=== PATIENT | female | born 1935 | race Caucasian/White ===

== ENCOUNTER 2017-05-05 21:14 | Inpatient (IN) | payer MEDICARE, BC ==
[~2017-05-05] VITALS: Ht 170.2 cm; Wt 86.6 kg
--- NOTE | ~2017-05-05 | H ---
[address] [address] HISTORY AND PHYSICAL Name: JEREMIAH CERDA Room: [address] IN .R.#: [id number] Admission: 05/05/17 Attend Phys: Chaparro Kang MD Discharge: 05/09/17 Date of : 33 Report #: [id number] THIS REPORT FOR: //name// For History and Physical please refer to the consultation note in the patient's medical record. By: [facility]4Medical Records Staff SOWMYA /MEDINA
[~2017-05-05 21:14] MED LIST: ACETAMINOPHEN-1 EAC1 PO; ACIPHEX 20 MG T20 MG PO; ADULT LOW DOSE81 MG PO; AMLODIPINE BESYL5 M1 PO; AMOXICILLIN 50500 MG PO; ANTIVERT12.5 MG PO; ANTIVERT25 MG PO; ASPIR 8181 MG PO; ASPIRIN EC325 MG PO; ATIVAN0.5 MG PO; BETAPACE80 MG PO; BUSPIRONE HCL10 MG PO; BYSTOLIC 5 MG5 M1 PO; BYSTOLIC10 MG PO; COD LIVER OIL1 EACH PO; COZAAR 25 MG TA25 MG PO; COZAAR 50 MG TA50 M1 PO; COZAAR 50 MG TA50 M2 PO; FLONASE 0.05%50 MCG NS; FLOVENT DISKUS50 MCG IH; FLOVENT HFA 4444 MCG; HYDRALAZINE 2525 M1 PO; HYDRALAZINE 2525 MG PO; ISOSORBIDE DINI30 MG; LANTUS SUBQ; LEVOTHROID75 MCG PO; LEVOTHYROXIN0.075 MG PO; LEVOXYL88 MCG PO; LIPITOR 10 MG10 M1 PO; LIPITOR10 MG PO; LOPRESSOR25 PO; MECLIZINE 25 MG25 M1 PO; MECLIZINE HCL25 M1 PO; METFORMIN HCL500 MG PO; NASAL SPRAY30 ML NS; NIACIN400 MG PO; NITROGLYCERIN0.4 MG SUBLING; NITROSTAT0.4 M1 SUBLING; NITROSTAT0.4 MG SL; NORVASC5 MG PO; PLAVIX 75 MG TA75 M1 PO; PLAVIX 75 MG TA75 MG PO; PRAVACHOL40 MG PO; PREDNISONE 20 M20 M1 PO; SORINE 80 MG TA80 M1; SORINE 80 MG TA80 M1 PO; SOTALOL160 MG PO; SOTALOL80 MG PO; TOPROL XL25 MG PO; TYLENOL325 MG PO; VALIUM2 MG PO; XARELTO10 MG PO; XARELTO15 MG PO; ZOCOR 10 MG TAB10 MG PO; ZOCOR5 MG PO; ZOLOFT50 MG PO
[2017-05-05 21:24] VITALS: BP 125/69
[2017-05-05 21:43] LABS: ABSOLUTE EOSINOPHILS 0.1 thou/uL (0.0-0.7); ABSOLUTE LYMPHOCYTES 1.9 thou/uL (0.8-5.3); ABSOLUTE MONOCYTES 0.5 thou/uL (0.0-1.2); ABSOLUTE NEUTROPHILS 4.7 thou/uL (1.6-8.1); BASOPHILS 0.6 %; EOSINOPHILS 1.4 %; HEMATOCRIT 41.8 % (37.0-47.0); HEMOGLOBIN 14.1 gm/dL (12.0-15.0); LYMPHOCYTES 25.9 %; MCH 30.3 pg (26.0-34.0); MCHC 33.8 g/dL (28.0-37.0); MCV 89.6 fL (80.0-100.0); MPV 7.7 fl. (7.2-11.1); NUCLEATED RBCS 0 /100WBC; PLATELET COUNT* 237 thou/uL (150-400); POLYS 65.1 %; RBC 4.67 mil/uL (4.20-5.00); RDW-CV 13.6 % (10.5-14.5); WBC 7.2 thou/uL (4.0-11.0)
[2017-05-05 22:00] LABS: CALCIUM 8.5 mg/dL (8.5-10.1); CREATININE 1.2 mg/dL (0.6-1.3)
[2017-05-05 22:05] LABS: ALBUMIN 3.3 g/dL (3.4-5.0); TOTAL BILIRUBIN 0.3 mg/dL (<0.1-1.0); TOTAL PROTEIN 7.1 g/dL (6.4-8.2)
[2017-05-05 22:08] LABS: TROPONIN-I LEVEL 0.9 ng/mL (<0.06)
[2017-05-05 22:25] LABS: URINE BILIRUBIN NEGATIVE (Negative); URINE BLOOD NEGATIVE (Negative); URINE CLARITY CLEAR; URINE COLOR YELLOW; URINE GLUCOSE-RANDOM 2+ (Negative); URINE KETONES NEGATIVE (Negative); URINE LEUKOCYTES-REFLEX NEGATIVE (Negative); URINE NITRITE-REFLEX NEGATIVE (Negative); URINE PROTEIN NEGATIVE (Negative); URINE SPECIFIC GRAVITY 1.025 (1.005-1.030); URINE UROBILINOGEN 0.2 E.U./dl (0.2-1.0)
[2017-05-05 22:40] LABS: INFLUENZA A ANTIGEN None Detected (None Detect); INFLUENZA B ANTIGEN None Detected (None Detect)
[2017-05-06] VITALS (8 sets, daily range): BP systolic 112–148; BP diastolic 46–79
--- NOTE | 2017-05-06 01:00 | NUR ---
PT BROUGHT TO ICU BED 1 FROM THE ED FOR TACHYCARDIA, ELEVATED TROP, AMS, IDDM UNCONTROLLED. ASSESSMENT AND VS OBTAINED, SEE CHARTING. PT WAS GIVEN ADENOSINE BEFORE PT CAME TO THE ED. CARDIZEM OFF AND PT IS IN SR 60-70. PT ON RA WITH SATS 95-100. PT IS AXOX4 AND STATES THAT SHE FEELS MUCH BETTER. WILL CON'T TO MONITOR.
--- NOTE | 2017-05-06 05:37 | NUR ---
NO CHANGE IN PT'S CONDITION SINCE ADMISSION. TROP WAS 1.34 ASKED THE PT IF SHE WAS HAVING ANY CHEST, JAW, ARM PAIN AND SHE STATED NO.
[2017-05-06 08:06] LABS: CHOLESTEROL 309 mg/dL (<200); HDL CHOLESTEROL 65 mg/dL (>40); LDL CHOLESTEROL 223 mg/dL (<100); SERUM ASSESSMENT Slight Lipemia; TC:HDL 4.8 Ratio (Not establshd); TRIGLYCERIDE 106 mg/dL (<150); VLDL 21 mg/dL (<40)
--- NOTE | 2017-05-06 13:55 | NUR ---
PATIENT IN STRESS TEST. UP IN ROOM PRIOR WITHOUT COMLAINT.
--- NOTE | 2017-05-06 14:44 | EKG ---
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 : 1935 Requested By: Anand Webber Order Number: [id number] MD: Chaparro Kang Measurements Intervals [place] Rate: 139 P: 179 MA: 133 QRS: 42 QRSD: 119 T: 7 QT: 328 QTc: 499 Interpretive Statements Supraventricular tachycardia Right bundle branch block Compared to ECG 01/28/2016 08:04:09 Right bundle-branch block now present Sinus rhythm no longer present T-wave abnormality no longer present Possible ischemia no longer present Electronically Signed On 05-06-2017 14:44:32 CDT by Chaparro Kang [email or web address] <ELECTRONICALLY SIGNED> By: Chaparro Kang MD, FACC 05/06/17 1444 2134 2134 Chaparro Kang MD, FAC /EPI
--- NOTE | 2017-05-06 14:45 | EKG ---
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 : 1935 Requested By: Anand Webber Order Number: [id number] Reading MD: Chaparro Kang Measurements Intervals [place] Rate: 123 P: [place]: QRS: 183 QRSD: 134 T: 1 QT: 359 QTc: 514 Interpretive Statements Supraventricular tachycardia Right bundle-branch block Borderline repol abnrm, inferolateral leads ST depression V1-V3, suggest recording posterior leads Baseline wander in lead(s) V1 Compared to ECG 01/28/2016 08:04:09 ST (T wave) deviation now present Sinus rhythm no longer present T-wave abnormality no longer present Possible ischemia no longer present Electronically Signed On 05-06-2017 14:45:00 CDT by Chaparro Kang [email or web address] <ELECTRONICALLY SIGNED> By: Chaparro Kang MD, [facility] 05/06/17 1445 000 0006 Chaparro Kang MD, [facility] /EPI
--- NOTE | 2017-05-06 14:45 | EKG ---
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 Rep: KIMBERLY : 1935 Requested By: Anand Webber Order Number: [id number] Natali MD: Chaparro Kang Measurements Intervals [place] Rate: 120 P: 179 [place]: 199 QRS: 1 QRSD: 126 T: 18 QT: 367 QTc: 519 Interpretive Statements Ventricular tachycardia Consider left atrial enlargement Right bundle branch block Consider left ventricular hypertrophy ST depr, consider ischemia, anterolateral lds Prolonged QT interval Baseline wander in lead(s) I,aVR,V1 Compared to ECG 01/28/2016 08:04:09 Right bundle-branch block now present Prolonged QT interval now present Sinus rhythm no longer present T-wave abnormality no longer present Possible ischemia still present Electronically Signed On 05-06-2017 14:45:21 CDT by Chaparro Kang [email or web address] <ELECTRONICALLY SIGNED> By: Chaparro Kang MD, [facility] 05/06/17 1445 0044 0044 Chaparro Kang MD, [facility] /EPI
--- NOTE | 2017-05-06 14:45 | EKG ---
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 : 1935 Requested By: Anand Webber Order Number: [id number] MD: Chaparro Kang Measurements Intervals [place] Rate: 64 P: 58 [place]: 191 QRS: -19 QRSD: 131 T: 87 QT: 442 QTc: 456 Interpretive Statements Sinus rhythm Right bundle branch block Repol abnrm suggests ischemia, diffuse leads Compared to ECG 01/28/2016 08:04:09 Right bundle-branch block now present Early repolarization now present T-wave abnormality no longer present Possible ischemia still present Electronically Signed On 05-06-2017 14:45:28 CDT by Chaparro Kang [email or web address] <ELECTRONICALLY SIGNED> By: Chaparro Kang MD, FACC 05/06/17 1445 0047 0047 Chaparro Kang MD, FACC /EPI
--- NOTE | 2017-05-06 17:53 | NUR ---
REPORT CALLED TO SAM RUIZ. PT TO TRANSFERED TO 201
[2017-05-06 18:07] LABS: GLYCOHEMOGLOBIN (HGB A1C) 9.5 % (4.8-5.6)
--- NOTE | 2017-05-06 18:31 | NUR ---
PATIENT RESTING IN CHAIR IN ROOM. UP AD JONO ON UNIT. 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 VITAL SIGNS STABLE. HOURLY ROUNDING COMPLETED FOR PATIENT SAFETY.
[2017-05-07] VITALS: BP 115/43
--- NOTE | 2017-05-07 02:17 | NUR ---
RESTING IN BED MOST OF NIGHT. DENIES COMPLAINTS OF PAIN OR DISCOMFORT. UP AD JONO WITH SLOW STEADY GAIT. NO SIGN OF DISTRESS. CONT. TO MONITOR. CONT. WITH CURRENT PLAN OF CARE AT THIS TIME.
[2017-05-07 04:00] VITALS: BP 138/44
[2017-05-07 08:00] VITALS: BP 143/58
--- NOTE | 2017-05-07 08:00 | NUR ---
ASSUMED CARE OF PT ASSESSED AND DOCUMENTED. PT ON CARDIAC MONITER TRACING SB HR 52. PT IS A&O WITH NO C/O PAIN. PT IS ON ROOM AIR WITH CLEAR LUNGS. VSS WNL. PT IS AFEBRILE. BED IS IN LOW POSITION CALL LIGHT IS IN REACH. WM.
[2017-05-07 11:49] VITALS: BP 154/64
--- NOTE | 2017-05-07 15:11 | NUR ---
SPOKE WITH PT.WHO WAS ALERT AND ORIENTED. SHE SAID SHE LIVES ALONE. SHE SAID SHE IS VERY INDEPENDENT. HER DAUGHTER, SHRADDHA AND HER GRANDKIDS CHECK ON HER OR CALL HER DAILY. SHE DOES NOT USE ANY DME. SHE STILL DRIVES,SHOPS,COOKS-LIKES TO EAT OUT. SHE SHOULD NOT HAVE ANY DISCHARGE NEEDS.
[2017-05-07 15:55] VITALS: BP 127/48
--- NOTE | 2017-05-07 16:35 | CARDNUC ---
[place] [address] CARDIAC NUCLEAR IMAGING REPORT Name: JEREMIAH CERDA Room: [address] IN [facility]#: [id number] Admission: 05/05/17 Attend Phys: Chaparro Kang, Discharge: Date of : 34 Date of Service: 05/07/17 1635 Report #: [id number] THIS REPORT FOR: //name// APPROVED REPORT Study performed: 05/06/2017 10:12:00 Exam: Nuclear Stress Test Indication: Dyspnea Patient Location: Out-Patient Stress Tech: Lula Rodas Stress Nurse: Rhoda Melendez RN NM Tech:RAE Darby Ht: 5 ft 7 in Wt: 253 lbs BSA: 2.24 m2 BMI: 39.62 Medical History Medical History: CAD s/p DE, CAD s/p stent, HTN, Hyperlipidemia, Diabetes, Atrial Fibrillation Medications: adenosine, atorvastatin, diltiazem, hydralazine, losartan, sotalol, asa Allergies: menthol, sulfa, triplelennamine, clemastine, diphenhydramine, phynelpropanolemine, pseudoephedrin, triproledine Cardiac Risk Factors: Age, DM, HTN, Hyperlipidemia Previous Cardiac Procedures: Myocardial infarction, PCI Exercise History: Sedentary Stress Test Details Stress Test: Pharmacologic stress testing performed using 0.4 mg of regadenoson per 5 mL given IV over 10 seconds. Reason for pharmacologic stress test: physical limitation. HR Resting HR: 77 bpm Max Heart Rate (APMHR): 137 bpm Max HR Achieved: 90 bpm Target HR (85% APMHR): 116 bpm % of APMHR: 65 Recovery HR: 82 bpm BP Resting BP: 145/91 mmHg Max BP: 148/68 [place] [address] CARDIAC NUCLEAR IMAGING REPORT Name: JEREMIAH CERDA Room: [address]#: [id number] Admission: 05/05/17 Attend Phys: Chaparro Kang, Discharge: Date of : 34 Date of Service: 05/07/17 1635 Report #: [id number] Resting ECG: Sinus Rhythm, RBBB Stress ECG: Sinus Rhythm, RBBB ST Change: None Arrhythmia: None Recovery ECG: Sinus Rhythm, RBBB Recovery ST Change: None Recovery Arrhythmia: None Clinical Reason for Termination: Completed protocol Stress Symptoms: SOB, SHAFFER post recovery Exercise duration: 0 min sec Exercise capacity: 1.0 METs The patient had headache and shortness of breath without chest pain with Lexiscan infusion. Nurse Comments Patient complained of SOB and SHAFFER post recovery in the nuclear med area, O2 placed on at 2L/NC, breath sounds clear to ascultation-bases clear, 50mg aminophylline IV slowly for c/o SHAFFER and SOB at 1410. Patient states feels much better now and is singing while getting nuclear imaging done at 1417. ICU nurse Josh WINKLER notified of SOB and SHAFFER and of aminophylline administration. Stress ECG Conclusion The baseline 12-lead elect cardiogram showed sinus rhythm with right bundle-branch block and nonspecific T-wave inversion and ST segment depression. EKGs obtained during and post Lexiscan infusion showed sinus rhythm with no significant ST or T wave changes when compared to baseline. There were no significant stress-induced arrhythmias. NM EXAM: Myocardial Perfusion STRESS/REST Imaging Protocol: Stress Tc-99m/Rest Tc-99m 2 days Resting Data Rest SPECT myocardial perfusion imaging was performed in supine position 30 minutes following the intravenous injection of 42.0 mCi of Tc-99m Sestamibi. Time of rest injection: 819 Date: 05/07/2017 Time of rest imagin The images were gated to evaluate regional wall motion and calculate left ventricular ejection fraction. Administration Route: IV [place] [address] CARDIAC NUCLEAR IMAGING REPORT Name: JEREMIAH CERDA Room: [address] IN ..#: [id number] Admission: 05/05/17 Attend Phys: Chaparro Kang, Discharge: Date of : 34 Date of Service: 05/07/17 1635 Report #: [id number] Pharmacologic stress test was performed by injecting Regadenoson 0.4 mg IV push followed by the intravenous injection of 40.3 mCi of Tc-99m Sestamibi. Time of stress injection: 1325 Date: 05/06/2017 Time of stress imagin Administration Route: IV Gated Stress SPECT was performed 40 minutes after stress injection. The images were gated to evaluate regional wall motion and calculate left ventricular ejection fraction. Stress only was performed in the Supine position. Study Quality Study: Good Artifact: No artifact Study Data At rest, the left ventricular ejection fraction was 53%.. Post stress, the left ventricular ejection was 46%.. TID = 1.02. Perfusion Resting images show uniform uptake of the radioisotope throughout the myocardium. Post Lexiscan stress there is a moderate size mild/moderate intensity defect involving the inferior wall. No other significant defects were identified. Wall Motion Gated images show hypokinesis involving the septum and inferior wall. Left ventricular systolic function appears to be at the lower limits of normal. Nuclear Conclusion ECG Findings: non-diagnostic Clinical Findings: non-diagnostic Nuclear Findings: positive for ischemia Exercise Capacity: not assessed Left Ventricular Function: abnormal Risk Study: high Myocardial perfusion images suggest inferior wall ischemia. Ventricular systolic function appears mildly decreased with associated wall motion abnormalities. This is a high risk study for underlying atherosclerotic coronary artery disease in the right coronary artery distribution. <Conclusion> [place] [address] CARDIAC NUCLEAR IMAGING REPORT Name: JEREMIAH CERDA Room: [address]#: [id number] Admission: 05/05/17 Attend Phys: Chaparro Kang, Discharge: Date of : 34 Date of Service: 05/07/17 1635 Report #: [id number] The baseline 12-lead elect cardiogram showed sinus rhythm with right bundle-branch block and nonspecific T-wave inversion and ST segment depression. EKGs obtained during and post Lexiscan infusion showed sinus rhythm with no significant ST or T wave changes when compared to baseline. There were no significant stress-induced arrhythmias. <ELECTRONICALLY SIGNED> By: Chaparro Kang MD, FACC 05/07/17 1635 34 34 Chaparro Kang MD, FACC /INF
[2017-05-07 17:04] LABS: APTT 23.3 Seconds (25.0-31.3); PROTIME 9.9 Seconds (9.20-11.50)
[2017-05-07 17:05] LABS: CALCIUM 8.5 mg/dL (8.5-10.1); CREATININE 1.2 mg/dL (0.6-1.3); POTASSIUM 4.7 mmol/L (3.5-5.1)
--- NOTE | 2017-05-07 17:07 | NUR ---
PT HAS RESTED IN HER ROOM THIS SHIFT. SHE AMBULATES WELL AND IS STEADY ON HER FEET. 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 PT REC 4U OF INSULIN WITH LUNCH ANG 6U WITH HER DINNER. EDUCATION GIVEN ON DEMAND. HOURLY ROUNDING COMPLETE.
--- NOTE | 2017-05-07 17:59 | EKG ---
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: : 1935 Requested By: Chaparro Kang Order Number: [id number] Reading MD: Desean Hinojosa Measurements Intervals [place] Rate: 60 P: 48 [place]: 194 QRS: -26 QRSD: 132 T: 177 QT: 451 QTc: 451 Interpretive Statements Sinus rhythm Right bundle branch block Repol abnrm suggests ischemia, anterolateral Compared to ECG 05/06/2017 00:47:52 No significant changes Electronically Signed On 05-07-2017 17:59:15 CDT by Desean Hinojosa [email or web address] <ELECTRONICALLY SIGNED> By: Desean Hinojosa MD, [facility] 05/07/17 1759 0950 0950 Desean Hinojosa MD, FACC /EPI
[2017-05-07 20:00] VITALS: BP 145/64
[2017-05-08] VITALS: BP 120/50
--- NOTE | 2017-05-08 02:49 | NUR ---
UP IN HALLWAY EARLIER. AMBULATIONS WITH STEADY GAIT. NPO AFTER [place] FOR CARDIAC CATH IN AM. DENIES COMPLAINTS OF PAIN OR DISCOMFORT. BED IN LOW POSITION, CALL LIGHT IN REACH. CONT. WITH CURRENT PLAN OF CARE AT THIS TIME.
[2017-05-08 04:00] VITALS: BP 135/51
[2017-05-08 08:00] VITALS: BP 162/61
--- NOTE | 2017-05-08 08:31 | NUR ---
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
[2017-05-08 11:40] VITALS: BP 141/52
--- NOTE | 2017-05-08 12:47 | CON ---
[address] [address] CONSULTATION Name: JEREMIAH CERDAOGENE Room: [address] IN M.R.#: [id number] Admission: 05/05/17 Attend Phys: Chaparro Kang MD Discharge: Date of : 34 Report #: [id number] THIS REPORT FOR: //name// CC: Armond Jeong MD [facility] Dr. Dominga MCGINNIS physician/PCP Chaparro Kang INDICATION: Recurrent supraventricular tachycardia. HISTORY OF PRESENT ILLNESS: The patient is a very pleasant 82-year-old white female who last night when going to bed developed recurrence of her supraventricular tachycardia. She had been on sotalol for this. She has not had an episode for probably 2 years. She presented to the emergency room where she was given diltiazem and ultimately adenosine and converted to sinus rhythm. In this setting, she has had a bump in her troponin to approximately 1.9. Review of the records show she has a chronically elevated troponin. She is not complaining of any chest pain or shortness of breath. EKG shows supraventricular tachycardia and then after conversion, sinus rhythm without ST elevation. At the time of my interview, she is comfortable and without complaint. A stress test has been ordered and is senior living completed at this time. She has no complaints at this time. PAST MEDICAL HISTORY: 1. Coronary artery disease with previous percutaneous coronary intervention to the left anterior descending coronary artery and first diagonal branch in December 2011. She had had a previous stent to the right coronary artery at that time that was patent. She has otherwise nonocclusive coronary artery disease. She is not having angina. 2. Hypertension. 3. Hyperlipidemia. 4. Hypothyroidism. 5. Type 2 diabetes mellitus. 6. Remote history of pulmonary embolus. PAST SURGICAL HISTORY: 1. Percutaneous coronary intervention in 2009 to the right coronary artery. 2. Percutaneous coronary intervention to the LAD and diagonal in 2011. ALLERGIES: MENTHOL, PHENYLPROPANOLAMINE, PSEUDOEPHEDRINE, TRIPROLIDINE, SULFA, and ANTIHISTAMINE. HOME MEDICATIONS: Aspirin 81 mg daily, atorvastatin 10 mg daily, hydralazine 25 mg b.i.d., Lantus 50 units at bedtime, Synthroid 0.075 mg daily, Cozaar 100 mg daily, meclizine 12.5 mg daily as needed, Nitrostat p.r.n., and sotalol 120 mg at bedtime, . [place] [address] CONSULTATION Name: JEREMIAH CERDA CRISS Room: [address]#: [id number] Admission: 05/05/17 Attend Phys: Chaparro Kang MD Discharge: Date of : 34 Report #: [id number] FAMILY HISTORY: Noncontributory. SOCIAL HISTORY: The patient is retired. She does not smoke. She does not drink alcohol. REVIEW OF SYSTEMS: On 14-point review of systems, she reports palpitations, dyspnea on exertion, mild peripheral edema, type 2 diabetes mellitus, hypothyroidism, history of pulmonary embolus in 2015, seasonal and medical allergies, she has arthritis without connective tissue diseases and wears reading glasses, otherwise 14-point review of systems was unremarkable. PHYSICAL EXAMINATION: VITAL SIGNS: Presently stable. Blood pressure is 128/64, pulse is 68 and regular. GENERAL: This is a pleasant lady, in no distress. Mood and affect appropriate. HEENT: Extraocular muscles intact. Mucous membranes are moist. NECK: Shows no jugular venous distention. There are no carotid bruits. CHEST: Reveals clear lung weathers without wheezes, rales, or rhonchi. CARDIAC: Reveals a regular rhythm with normal S1 and S2. I do not appreciate gallop or murmur. ABDOMEN: Reveals normal bowel sounds. The abdomen is soft and nontender. EXTREMITIES: Shows no significant edema. Peripheral pulses 2+ and palpable. SKIN: Warm and dry. A 12-lead EKG on arrival showed a slow atrial tachycardia. EKG presently sinus rhythm without acute ST or T-wave abnormality. Review of labs was fairly unremarkable with the exception of troponin of 1.9. Chest x-ray was without acute cardiopulmonary abnormality. IMPRESSION AND RECOMMENDATIONS: 1. Coronary artery disease, presently stable. She is not having any symptoms to suggest angina. 2. Non-ST elevation myocardial infarction as evidenced by elevated troponin, likely exacerbated by tachyarrhythmias. I do not believe she has had an acute coronary syndrome. We will follow clinically. No need for catheterization at this time. Stress test has been ordered and is senior living completed. 3. Recurrent supraventricular tachycardia, now in sinus rhythm. Increasing sotalol to 180 mg twice daily. We will repeat EKG in a.m. 4. Hypertension. Blood pressure adequately controlled on current regimen. [address] [place] [address] CONSULTATION Name: JEREMIAH CERDA Room: M.201-P ADM IN M.R.#: [id number] Admission: 05/05/17 Attend Phys: Chaparro Kang MD Discharge: Date of : 34 Report #: [id number] 5. Hyperlipidemia. Continue current statin agent. 6. Type 2 diabetes mellitus per primary physician. <ELECTRONICALLY SIGNED> By: Chaparro Kang MD, FACC 05/08/17 1247 1529 1755Micsherif Kang MD, FACC /nt
[2017-05-08 16:06] VITALS: BP 162/51
[2017-05-08 17:02] LABS: URINE BILIRUBIN NEGATIVE (Negative); URINE BLOOD NEGATIVE (Negative); URINE CLARITY CLEAR; URINE COLOR YELLOW; URINE GLUCOSE-RANDOM 3+ (Negative); URINE KETONES NEGATIVE (Negative); URINE LEUKOCYTES-REFLEX NEGATIVE (Negative); URINE NITRITE-REFLEX NEGATIVE (Negative); URINE PROTEIN NEGATIVE (Negative); URINE SPECIFIC GRAVITY 1.025 (1.005-1.030); URINE UROBILINOGEN 0.2 E.U./dl (0.2-1.0)
--- NOTE | 2017-05-08 18:49 | NUR ---
GOT UA AND PT TO GET MRI IN THE AM OF HEAD PT STILL CONFUSED BUT PLEASANT UP AD JONO WALKING THE HALLS BS STILL IN 200S T/O DAY DPOA NOTIFIED OF ALL CHANGES
[2017-05-08 20:00] VITALS: BP 179/57
--- NOTE | 2017-05-08 20:00 | NUR ---
RECEIVED REPORT AND ASSUMED CARE OF PT, ASSESSMENT COMPLETED. WHEN ASKING PT ORIENTATION QUESTIONS SHE LAUGHS IT OFF WHEN NOT KNOWING ANSWERS, SUCH ASKING WHERE SHE WAS STATED "YOU KNOW I'M OLD AND JUST WOKE UP SO CAN'T GIVE YOU THE RIGHT ANSWER". PLEASANT AND COOPERATIVE. TELEMETRY ON SHOWING SR. WILL CONT TO MONITOR AND ASSIST NEEDED.
[2017-05-09] VITALS: BP 130/52
[2017-05-09 04:24] VITALS: BP 158/53
--- NOTE | 2017-05-09 05:21 | NUR ---
AWAKE PART OF NIGHT AMBULATING AROUND ROOM. DENIES DISCOMFORT, JUST NOT ABLE TO SLEEP. TELEMETRY SHOWING SR WHILE AWAKE AND AT REST SB WITH 1ST AVB. ASSESSMENT UNCHANGED. HS GOALS PARTICALLY OBTAINED FOR REST AND SAFETY. HOURLY ROUNDING OBSERVED.
[2017-05-09 05:37] LABS: ABSOLUTE EOSINOPHILS 0.2 thou/uL (0.0-0.7); ABSOLUTE LYMPHOCYTES 1.4 thou/uL (0.8-5.3); ABSOLUTE MONOCYTES 0.5 thou/uL (0.0-1.2); ABSOLUTE NEUTROPHILS 3.5 thou/uL (1.6-8.1); BASOPHILS 0.6 %; EOSINOPHILS 3.6 %; HEMATOCRIT 37.5 % (37.0-47.0); HEMOGLOBIN 12.7 gm/dL (12.0-15.0); LYMPHOCYTES 25.8 %; MCH 30.4 pg (26.0-34.0); MCHC 33.7 g/dL (28.0-37.0); MONOCYTES 8.2 %; MPV 7.9 fl. (7.2-11.1); NUCLEATED RBCS 0 /100WBC; PLATELET COUNT* 221 thou/uL (150-400); POLYS 61.8 %; RBC 4.17 mil/uL (4.20-5.00); RDW-CV 13.6 % (10.5-14.5); WBC 5.6 thou/uL (4.0-11.0)
[2017-05-09 06:16] LABS: ALBUMIN 3.2 g/dL (3.4-5.0); CALCIUM 8.7 mg/dL (8.5-10.1); CREATININE 0.9 mg/dL (0.6-1.3); POTASSIUM 3.7 mmol/L (3.5-5.1); TOTAL BILIRUBIN 0.3 mg/dL (<0.1-1.0); TOTAL PROTEIN 6.2 g/dL (6.4-8.2)
[2017-05-09 08:02] VITALS: BP 158/57
--- NOTE | 2017-05-09 10:18 | NUR ---
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
[2017-05-09] MEDS ORDERED: SOTALOL160 MG PO (10:42)
[2017-05-09 10:48] VITALS: BP 158/57
[2017-05-09 11:24] VITALS: BP 123/48
--- NOTE | 2017-05-09 14:14 | NUR ---
PT LEFT WITH SON-IN-LAW VIA POV NO CONCERNS AT THIS TIME PT STILL VERY FORGETFUL CALLED ELIZABETH LLANES AND SHE'S AWARE OF DISCHARGE AND CHANGED
[2017-05-10] MEDS ORDERED: XANAX 0.25 MG0.25 MG PO (14:19)
[2017-05-12] MEDS ORDERED: DELSYM30 MG/5 M1 PO (18:56)
[2017-05-12] MEDS ORDERED: AMOXICILLIN 50500 MG PO (18:56)
[2017-05-12] MEDS ORDERED: FLONASE 0.05%50 MCG NASAL (18:59)
--- NOTE | 2017-05-21 12:12 | EKG ---
[place] [address] ELECTROCARDIOGRAM REPORT Name: JEREMIAH CERDA Room: [address] IN .R.#: [id number] Admission: 05/05/17 Attend Phys: Chaparro Kang MD Discharge: 05/09/17 Date of : 33 Report #: [id number] THIS REPORT FOR: //name// [facility] ED Test Date: 2017-05-12 Test Time: 18:18:49 Pat Name: JEREMIAH CERDA Department: Room: [facility] Gender: Operations Research Scientist: Ivelisse BERNAL : 1935 Requested By: Anand Webber Order Number: [id number] MD: Measurements Intervals [place] Rate: 78 P: 69 MD: 168 QRS: -9 QRSD: 129 T: 28 QT: 425 QTc: 485 Interpretive Statements Sinus rhythm Right bundle branch block Compared to ECG 05/11/2017 15:49:41 Sinus bradycardia no longer present ST (T wave) deviation no longer present Possible ischemia no longer present [email or web address] By: 1043 [id number] Armond Jeong MD, FACC /EPI
--- NOTE | 2017-05-22 19:10 | CON ---
[address] [address] CONSULTATION Name: JEREMIAH CERDA Room: [address] IN M.R.#: [id number] Admission: 05/05/17 Attend Phys: Chaparro Kang MD Discharge: 05/09/17 Date of : 33 Report #: [id number] THIS REPORT FOR: //name// CC: RAS physician/PCP Chaparro Kang DATE OF SERVICE: 05/08/2017 HISTORY OF PRESENT ILLNESS: This is an 82-year-old female patient who was evaluated by me for memory disturbances. The patient does not think there is much wrong with her. I talked to the patient's daughter and she indicates that this patient has significant memory disturbances. Daughter thinks memory problem is severe and the patient unreplaced that. The patient apparently had some worsening mental decline. It started spontaneously without any trauma. This patient apparently had got lost while driving. REVIEW OF SYSTEMS: Positive for insulin-dependent diabetes, supraventricular tachycardia and cardiac stent. She has a history of anxiety. It does not look like this patient controlled her diabetes very well. She does have a history of supraventricular tachycardia. She has a history of hypothyroidism and hypertension. According to the daughter, it is not clear how much she takes care of it. She denies any prior history of stroke. Daughter was going to see this patient this evening. I carried out the 14-point review of systems. The patient is able to ambulate. She does not complain of any new eye, ENT, cardiac, respiratory, GI, , musculoskeletal, constitutional, dermatological, hematological, psychiatric, throat or allergic symptoms. She does have diabetes. She does not have any throat symptom either. PAST MEDICAL HISTORY: Negative for stroke according to the patient. FAMILY HISTORY: Negative for early age stroke. SOCIAL HISTORY: She does not smoke or drink alcohol. PHYSICAL EXAMINATION: NEUROLOGICAL: Indicate that this patient is alert. She is responsive. She can tell me what hospital she is in and who the president is. Her speech looks unremarkable. Cranial nerve examination 2 through 12 is unremarkable. Her strength, sensation, reflexes and tones are symmetrical. There is no meningeal sign. There is no carotid bruit. There is no thyroid mass. Her hearing and vision looks adequate. I could not look at the fundus very well. There is no cerebellar sign. GENERAL: She is a reasonably well-developed individual who does not have any dysmorphic features of eyes, ears and face. VITAL SIGNS: Her blood pressure is 162/51, respirations 16, pulse is 61 and temperature is 97.9. [place] [address] CONSULTATION Name: JEREMIAH CERDA CRISS Room: [address]#: [id number] Admission: 05/05/17 Attend Phys: Chaparro Kang MD Discharge: 05/09/17 Date of : 33 Report #: [id number] LABORATORY DATA: Indicate a normal white count at 7.2. Her blood sugar is out of control. Her last vitamin B12 in 2013 was normal. TSH is borderline at 8.9. RADIOLOGICAL DATA: She did have a CT scan of the head that did not show any definite abnormality. IMPRESSION: It is difficult to form in this patient because the daughter thinks she has significant cognitive deficit, but the patient denies that. I discussed with her that we will go ahead and do an MRI in this patient. I discussed with her that we would like to do a formal neuropsychological testing in this patient. She wants to talk to the mother, but she wants to go ahead with the MRI. RECOMMENDATIONS: 1. I schedule an MRI in this patient. 2. She had multiple metabolic disturbances or go ahead and get an EEG done. 3. She has pretty significant dyslipidemia and that need to be addressed. 4. Her thyroid is borderline and again that needs to be addressed. I will defer that evaluation and management to yourself. 5. I will look at this MRI and an EEG and talked to the daughter again tomorrow and she will arrange neuropsychological testing as an outpatient. More than 50 minutes of time was spent taking care of this patient today and majority of that time was spent counseling the patient as well as the daughter. Thank you very much for this referral. <ELECTRONICALLY SIGNED> By: Biju Strange MD 05/22/171909 11 Pangélica Strange MD /nt
== END 2017-05-09 14:00 | disposition home or self-care (01) | DRG 280 ==
LOC: M.ERS 21:14 → M.ICU 23:03 → M.TBA-ER 23:03 → M.ICU 23:32 → M.2W 05-06 18:05
PROVIDERS: Internal Medicine; Nurse Practitioner Psychiatric/Mental Health; ADMIT Internal Medicine Cardiovascular Disease
DX: I21.4 Non-ST elevation (NSTEMI) myocardial infarction (principal); I50.31 Acute diastolic (congestive) heart failure; I47.1 Supraventricular tachycardia; E10.65 Type 1 diabetes mellitus with hyperglycemia; E78.00 Pure hypercholesterolemia, unspecified; E03.9 Hypothyroidism, unspecified; E66.9 Obesity, unspecified; F41.9 Anxiety disorder, unspecified; F03.90 Unspecified dementia, unspecified severity, without behavioral disturbance, psychotic disturbance, mood disturbance, and anxiety; I25.10 Atherosclerotic heart disease of native coronary artery without angina pectoris; I48.0 Paroxysmal atrial fibrillation; Z95.5 Presence of coronary angioplasty implant and graft; Z90.710 Acquired absence of both cervix and uterus; Z79.82 Long term (current) use of aspirin; Z79.4 Long term (current) use of insulin; Z68.29 Body mass index [BMI] 29.0-29.9, adult; Z79.899 Other long term (current) drug therapy; Z86.711 Personal history of pulmonary embolism; Z82.49 Family history of ischemic heart disease and other diseases of the circulatory system; Z83.3 Family history of diabetes mellitus

== ENCOUNTER 2017-05-10 12:41 | Emergency (ER) | payer MEDICARE, BC ==
[~2017-05-10] VITALS: Ht 170.2 cm; Wt 86.6 kg
[2017-05-10 13:47] LABS: ABSOLUTE BASOPHILS 0.1 thou/uL (0.0-0.2); ABSOLUTE EOSINOPHILS 0.1 thou/uL (0.0-0.7); ABSOLUTE LYMPHOCYTES 1.2 thou/uL (0.8-5.3); ABSOLUTE MONOCYTES 0.4 thou/uL (0.0-1.2); BASOPHILS 1.4 %; EOSINOPHILS 2.9 %; HEMATOCRIT 39.9 % (37.0-47.0); HEMOGLOBIN 13.6 gm/dL (12.0-15.0); LYMPHOCYTES 24.5 %; MCH 30.7 pg (26.0-34.0); MCV 90.4 fL (80.0-100.0); MONOCYTES 7.9 %; MPV 7.6 fl. (7.2-11.1); NUCLEATED RBCS 0 /100WBC; PLATELET COUNT* 231 thou/uL (150-400); POLYS 63.3 %; RBC 4.42 mil/uL (4.20-5.00); RDW-CV 13.6 % (10.5-14.5); WBC 4.7 thou/uL (4.0-11.0)
[2017-05-10 13:57] LABS: CALCIUM 8.9 mg/dL (8.5-10.1); POTASSIUM 4.3 mmol/L (3.5-5.1)
[2017-05-10 14:08] LABS: ALBUMIN 3.3 g/dL (3.4-5.0); TOTAL BILIRUBIN 0.5 mg/dL (<0.1-1.0); TOTAL PROTEIN 6.8 g/dL (6.4-8.2)
[2017-05-10 14:11] LABS: TROPONIN-I LEVEL 0.98 ng/mL (<0.06)
[2017-05-10] MEDS ORDERED: XANAX 0.25 MG0.25 MG PO (14:19)
[2017-05-10 14:44] VITALS: BP 140/56
--- NOTE | 2017-05-11 13:06 | EKG ---
[place] [address] ELECTROCARDIOGRAM REPORT Name: JEREMIAH CERDA Room: [facility]#: [id number] Admission: 05/10/17 Attend Phys: Discharge: 05/10/17 Date of : 34 Report #: [id number] THIS REPORT FOR: //name// 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: : 1935 Requested By: Neal Kurtz Order Number: [id number] MD: Yazan Juarez Measurements Intervals [place] Rate: 49 P: 55 [place]: 185 QRS: 4 QRSD: 130 T: 171 QT: 486 QTc: 439 Interpretive Statements Sinus bradycardia Right bundle branch block Repol abnrm suggests ischemia, diffuse leads Compared to ECG 05/07/2017 09:50:32 Sinus rhythm no longer present Possible ischemia still present Electronically Signed On 05-11-2017 13:06:12 CDT by Yazan Juarez [email or web address] <ELECTRONICALLY SIGNED> By: Johnnie Juarez MD, FAC 05/11/17 1306 1333 1333 Johnnie Juarez MD, [facility] /EPI
== END 2017-05-10 14:45 | disposition home or self-care (01) ==
LOC: M.ERS 12:41
PROVIDERS: Emergency Medicine
DX: F41.9 Anxiety disorder, unspecified (principal); I10 Essential (primary) hypertension; E78.00 Pure hypercholesterolemia, unspecified; E03.9 Hypothyroidism, unspecified; E11.9 Type 2 diabetes mellitus without complications; Z90.710 Acquired absence of both cervix and uterus; Z90.89 Acquired absence of other organs; Z88.8 Allergy status to other drugs, medicaments and biological substances; Z88.2 Allergy status to sulfonamides; Z79.4 Long term (current) use of insulin

== ENCOUNTER 2017-05-11 14:26 | Emergency (ER) | payer MEDICARE, BC ==
[~2017-05-11] VITALS: Ht 170.2 cm; Wt 86.6 kg
[~2017-05-11 14:26] MED LIST changes: +XANAX 0.25 MG0.25 MG PO
[2017-05-11 15:16] LABS: ABSOLUTE EOSINOPHILS 0.1 thou/uL (0.0-0.7); ABSOLUTE LYMPHOCYTES 1.3 thou/uL (0.8-5.3); ABSOLUTE MONOCYTES 0.5 thou/uL (0.0-1.2); ABSOLUTE NEUTROPHILS 4.8 thou/uL (1.6-8.1); BASOPHILS 0.6 %; HEMATOCRIT 40.3 % (37.0-47.0); HEMOGLOBIN 13.8 gm/dL (12.0-15.0); LYMPHOCYTES 18.9 %; MCH 30.9 pg (26.0-34.0); MCHC 34.2 g/dL (28.0-37.0); MCV 90.4 fL (80.0-100.0); MONOCYTES 6.9 %; MPV 7.5 fl. (7.2-11.1); NUCLEATED RBCS 0 /100WBC; PLATELET COUNT* 219 thou/uL (150-400); POLYS 71.6 %; RBC 4.45 mil/uL (4.20-5.00); RDW-CV 13.7 % (10.5-14.5); WBC 6.7 thou/uL (4.0-11.0)
[2017-05-11 15:23] LABS: CALCIUM 8.9 mg/dL (8.5-10.1); CREATININE 1.1 mg/dL (0.6-1.3); POTASSIUM 4.1 mmol/L (3.5-5.1)
[2017-05-11 15:28] LABS: ALBUMIN 3.5 g/dL (3.4-5.0); TOTAL BILIRUBIN 0.5 mg/dL (<0.1-1.0); TOTAL PROTEIN 7.2 g/dL (6.4-8.2)
[2017-05-11 16:01] VITALS: BP 167/59
--- NOTE | 2017-05-12 12:20 | EKG ---
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 : 1935 Requested By: Libertad Finnegan Order Number: [id number] MD: Armond Jeong Measurements Intervals [place] Rate: 55 P: 32 [place]: 183 QRS: 0 QRSD: 151 T: 48 QT: 526 QTc: 504 Interpretive Statements Sinus bradycardia Right bundle branch block st depression lateral leads, possible ischemia Compared to ECG 05/10/2017 13:33:42 no change Electronically Signed On 05-12-2017 12:19:57 CDT by Armond Jeong [email or web address] <ELECTRONICALLY SIGNED> By: Armond Jeong MD, [facility] 05/12/17 1219 1549 154 Armond Jeong MD, [facility] /EPI
[2017-05-12] MEDS ORDERED: DELSYM30 MG/5 M1 PO ×2 (18:56)
[2017-05-12] MEDS ORDERED: AMOXICILLIN 50500 MG PO ×2 (18:56)
[2017-05-12] MEDS ORDERED: FLONASE 0.05%50 MCG NASAL ×2 (18:59)
== END 2017-05-11 16:01 | disposition home or self-care (01) ==
LOC: M.ERS 14:26
PROVIDERS: Physician Assistant
DX: F41.9 Anxiety disorder, unspecified (principal); I10 Essential (primary) hypertension; E78.00 Pure hypercholesterolemia, unspecified; E03.9 Hypothyroidism, unspecified; E11.9 Type 2 diabetes mellitus without complications; Z90.710 Acquired absence of both cervix and uterus; Z88.2 Allergy status to sulfonamides; Z88.8 Allergy status to other drugs, medicaments and biological substances

== ENCOUNTER 2017-05-12 17:10 | Inpatient (IN) | payer MEDICARE, BC ==
[~2017-05-12] VITALS: Ht 170.2 cm; Wt 90.7 kg
[2017-05-12 17:11] VITALS: BP 151/83
[2017-05-12 17:44] LABS: ABSOLUTE EOSINOPHILS 0.1 thou/uL (0.0-0.7); ABSOLUTE LYMPHOCYTES 1.1 thou/uL (0.8-5.3); ABSOLUTE MONOCYTES 0.6 thou/uL (0.0-1.2); ABSOLUTE NEUTROPHILS 5.6 thou/uL (1.6-8.1); BASOPHILS 0.5 %; EOSINOPHILS 1.6 %; HEMATOCRIT 40.3 % (37.0-47.0); HEMOGLOBIN 13.5 gm/dL (12.0-15.0); LYMPHOCYTES 14.2 %; MCH 30.3 pg (26.0-34.0); MCHC 33.5 g/dL (28.0-37.0); MCV 90.3 fL (80.0-100.0); MONOCYTES 8.3 %; MPV 7.5 fl. (7.2-11.1); NUCLEATED RBCS 0 /100WBC; PLATELET COUNT* 225 thou/uL (150-400); POLYS 75.4 %; RBC 4.47 mil/uL (4.20-5.00); RDW-CV 13.8 % (10.5-14.5); WBC 7.4 thou/uL (4.0-11.0)
[2017-05-12 17:51] LABS: CALCIUM 8.5 mg/dL (8.5-10.1); CREATININE 1.2 mg/dL (0.6-1.3); POTASSIUM 3.7 mmol/L (3.5-5.1)
[2017-05-12 18:02] LABS: ALBUMIN 3.3 g/dL (3.4-5.0); TOTAL BILIRUBIN 0.3 mg/dL (<0.1-1.0); TOTAL PROTEIN 7.2 g/dL (6.4-8.2)
[2017-05-12] MEDS ORDERED: DELSYM30 MG/5 M1 PO ×2 (18:56)
[2017-05-12] MEDS ORDERED: AMOXICILLIN 50500 MG PO ×2 (18:56)
[2017-05-12] MEDS ORDERED: FLONASE 0.05%50 MCG NASAL ×2 (18:59)
[2017-05-12 19:23] LABS: INFLUENZA A ANTIGEN None Detected (None Detect); INFLUENZA B ANTIGEN None Detected (None Detect)
[2017-05-12 19:32] LABS: URINE BILIRUBIN NEGATIVE (Negative); URINE BLOOD TRACE (Negative); URINE CLARITY CLEAR; URINE COLOR YELLOW; URINE GLUCOSE-RANDOM 3+ (Negative); URINE KETONES 1+ (Negative); URINE LEUKOCYTES-REFLEX NEGATIVE (Negative); URINE NITRITE-REFLEX NEGATIVE (Negative); URINE PROTEIN NEGATIVE (Negative); URINE SPECIFIC GRAVITY 1.025 (1.005-1.030); URINE UROBILINOGEN 0.2 E.U./dl (0.2-1.0)
[2017-05-12 20:31] VITALS: BP 179/68
[2017-05-12 20:35] VITALS: BP 156/77
--- NOTE | 2017-05-12 23:37 | NUR ---
PT ADMIT TO ROOM 204 AT 2030. PT ALERT ORIENTED TO SELF AND PLACE. AMBULATING IN ROOM. TELEMETRY SHOWS SR. BLOOD GLUCOSE 248. DR FAYE NOTIFED OF BLOOD GLUCOSE. PT RESTING QUIETLY. WILL CONTINUE TO MONITOR.
[2017-05-13] VITALS (7 sets, daily range): BP systolic 137–178; BP diastolic 47–70
--- NOTE | 2017-05-13 08:00 | NUR ---
ASSUMED RESPONSIBILITY OF PT THIS AM PT ALERT AND ORIENTED X2 FORGETFUL AND CONFUSED UP AD JONO STEADY C/O COUGH , COUGH MEDICINE GIVEN AND FLONASE DENIES ANY PAIN MEDS GIVEN SPOKE WITH ELIZABETH THIS AM PLAN FOR POSSIBLE PLACEMENT CASE MANAGEMENT DISCUSSED RESTING T/O DAY NO COMPLAINTS
--- NOTE | 2017-05-13 11:12 | NUR ---
CM ASSESSMENT: Pt is A&O with forgetfulness. Spoke with Pt's dtr, Gisselle, on phone. Dtr states that Pt resides at home, but has been getting more forgetful. 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 Pt is pretty independent with ADLs. No DME. No hx of HH, Pt refuses to let people into her home. Dtr working to figure out alternate living options. Dtr is DPOA of healthcare and finances. Dtr wanting to check out [facility], [facility] and [facility]. Dtr has offered and has found someone that will come and stay with Pt for a few hours a day, Pt up until now Pt has been hesitant. Dtr states that Pt gets anxious at home and calls the ambulance, which has repeated landed her here at the hospital. Dtr would like to see Pt go skilled at dc. CM asked Dr to order PT/OT/ST cog evals. Following for disposition.
--- NOTE | 2017-05-13 15:36 | NUR ---
P.T. ORDERS RECEIVED. CHART REVIEWED. NSG NOTES AND NSG INDICATE PT HAS BEEN UP AD JONO, INDEP IN ROOM. THEREFORE, NO ACUTE P.T. INTERVENTION INDICATED.
--- NOTE | 2017-05-13 18:23 | NUR ---
ASSUMED RESPONSIBILITY OF PT THIS AM ALERT AND ORIENTED X 2 FORGETFUL AND CONFUSED BS ELEVATED SS MODERATE DOSE STARTED DENIES ANY PAIN SLEPT T/O DAY PULLED IV OUT WHILE IN BR ON ACCIDENT ORDER TO LEAVE OUT CALL LIGHT IN REACH FAMILY AT BEDSIDE CURRENTLY
[2017-05-14 03:56] VITALS: BP 147/56
--- NOTE | 2017-05-14 05:13 | NUR ---
PT ALERT ORIENTED TO SELF AND PLACE. AMBULATING IN ROOM. NO IV ACESS ORDERED. TELEMETRY SHOWS SR BBB. NO COUGHING NOTED. COUGH SYRUP GIVEN HS. WILL CONTINUE TO MONITOR.
[2017-05-14 05:31] LABS: ABSOLUTE EOSINOPHILS 0.2 thou/uL (0.0-0.7); ABSOLUTE LYMPHOCYTES 1.2 thou/uL (0.8-5.3); ABSOLUTE MONOCYTES 0.6 thou/uL (0.0-1.2); ABSOLUTE NEUTROPHILS 3.2 thou/uL (1.6-8.1); BASOPHILS 0.5 %; EOSINOPHILS 4.2 %; HEMATOCRIT 37.5 % (37.0-47.0); HEMOGLOBIN 12.9 gm/dL (12.0-15.0); LYMPHOCYTES 23.3 %; MCH 30.6 pg (26.0-34.0); MCHC 34.3 g/dL (28.0-37.0); MCV 89.4 fL (80.0-100.0); MONOCYTES 11.3 %; MPV 7.7 fl. (7.2-11.1); NUCLEATED RBCS 0 /100WBC; PLATELET COUNT* 222 thou/uL (150-400); POLYS 60.7 %; RDW-CV 13.5 % (10.5-14.5); WBC 5.2 thou/uL (4.0-11.0)
[2017-05-14 05:51] LABS: ALBUMIN 2.9 g/dL (3.4-5.0); CALCIUM 8.3 mg/dL (8.5-10.1); CREATININE 0.7 mg/dL (0.6-1.3); POTASSIUM 3.6 mmol/L (3.5-5.1); TOTAL BILIRUBIN 0.3 mg/dL (<0.1-1.0); TOTAL PROTEIN 6.1 g/dL (6.4-8.2)
[2017-05-14 08:00] VITALS: BP 116/57
--- NOTE | 2017-05-14 11:13 | NUR ---
would like Pt to dc to skilled. Spoke with Pt, she is in agreement, faxed referral to [facility]
[2017-05-14 11:22] VITALS: BP 142/49
--- NOTE | 2017-05-14 11:49 | NUR ---
ASSUMED CARE OF PATIENT THIS AM AT 0730. PATIENT IS ALERT AND ORIENTED TO PERSON AND PLACE. SHE DENIES PAIN AND DISCOMFORT. PATIENT IS UP IN THE ROOM AND HALLS INDEPENDANTLY. SHE IS TAKING HER MEALS WELL. TELE SHOWS SR WITH A BBB. PLANS FOR DISCHARGE TO A LTC FACILITY TODAY.
[2017-05-14 13:28] VITALS: BP 142/49
--- NOTE | 2017-05-22 19:10 | CON ---
[address] [address] CONSULTATION Name: JEREMIAH CERAD Room: [address] IN M.R.#: [id number] Admission: 05/12/17 Attend Phys: Tu Anton Discharge: 05/14/17 Date of : 33 Report #: [id number] THIS REPORT FOR: //name// CC: RAS physician/PCP Chirag Nguyễn DATE OF SERVICE: 05/13/2017 HISTORY OF PRESENT ILLNESS: This is an 82-year-old female patient whom I have seen recently and talked to the patient's daughter. She has indicated that this patient is confused. She is having significant memory disturbances. We have worked her up last time for any treatable cause for dementia and we did not find any treatable cause for dementia in this patient. She did have supraventricular tachycardia. We were going to an MRI in this patient, but she would not let us to do that. She came to Emergency Room. She thinks she called ambulance. She does not remember calling the ambulance. I also wanted to do an EEG in this patient, but I do not think that was done. REVIEW OF SYSTEMS: I carried out 14-point review of system in this patient and looks like this patient had non-STEMI and she has declined a lot of workup. She also needed a neuropsychological testing. Today, she emphasized diabetes, but does not know who called her to come to the Emergency Room. She does have a history of hypertensive emergency. She did have some blood workup done last time and she has dyslipidemia. Her vitamin B12 was okay. TSH was slightly low. We could not complete the workup because she refused most of the workup. Daughter wants this patient to be placed. This was her relevant 14-point review of system. PAST MEDICAL HISTORY: What looks like diabetes and memory decline. FAMILY HISTORY: Negative for early age stroke. SOCIAL HISTORY: The patient has a daughter and I talked to her. PHYSICAL EXAMINATION: Indicates she is alert. She knows what month it is. Does not know what day it is. She can name the president, but not the one before. She knows she is in [employer]. In general, she looks even more memory disturbances now than she had before. Cranial nerve examination 2-12 is unremarkable. She has symmetrical strength, sensation, reflexes and tones in all 4 extremities. Her reflexes are diminished, but that is probably because of diabetes. Position sense is present. There is no carotid bruit. There is no thyroid mass. Cardiac examination is unchanged. No respiratory difficulty or rhonchi. Pulses are palpable. She has no edema, cyanosis or jaundice. She is reasonably well-developed individual. Vital signs indicate a blood pressure of 156/62, respiration is 16, pulse is 80, temperature [place] 98.6[place] [address] CONSULTATION Name: ZAIDAJEREMIAHMARIAN KAHN Room: [address] IN [facility]#: [id number] Admission: 05/12/17 Attend Phys: Tu Anton Discharge: 05/14/17 Date of : 33 Report #: [id number] LABORATORY DATA: Her last workup was reviewed and it looks like B12 was normal. She declined the MRI. IMPRESSION: This patient's clinical presentation is consistent with dementia. Unfortunately, she is declining a lot of workup. I will see if we can do an EEG because she looks even more confused than she did last time to make sure there is nothing treatable like nonconvulsive seizures, but it is unlikely, we will find any treatable cause in this patient. Conservative care will be desired if she refuses all the treatment as she has done. I was able to talk her into doing an EEG because that will be the most easily treatable thing. RECOMMENDATION: 1. We will get an EEG. 2. She still will not go for further workup like MRI. 3. She has also refused the cardiac workup and in these circumstances, we probably will continue a conservative treatment in this patient. Thank you very much for this referral. <ELECTRONICALLY SIGNED> By: Biju Strange MD 05/22/17 1910 1702 [id number] Strange MD /nt
== END 2017-05-14 17:19 | DRG 637 ==
LOC: M.ERS 17:10 → M.2W 19:20 → M.TBA-ER 19:20 → M.2W 20:41
PROVIDERS: Nurse Practitioner Psychiatric/Mental Health; ADMIT Internal Medicine
DX: E11.65 Type 2 diabetes mellitus with hyperglycemia (principal); G93.41 Metabolic encephalopathy; I50.32 Chronic diastolic (congestive) heart failure; I11.0 Hypertensive heart disease with heart failure; E78.00 Pure hypercholesterolemia, unspecified; E03.9 Hypothyroidism, unspecified; J30.2 Other seasonal allergic rhinitis; E78.5 Hyperlipidemia, unspecified; F03.90 Unspecified dementia, unspecified severity, without behavioral disturbance, psychotic disturbance, mood disturbance, and anxiety; Z95.5 Presence of coronary angioplasty implant and graft; Z90.710 Acquired absence of both cervix and uterus; Z79.82 Long term (current) use of aspirin; Z79.4 Long term (current) use of insulin; Z79.899 Other long term (current) drug therapy; Z88.6 Allergy status to analgesic agent; Z88.2 Allergy status to sulfonamides; Z91.09 Other allergy status, other than to drugs and biological substances

== ENCOUNTER 2017-05-29 20:32 | Emergency (ER) | payer MEDICARE, BC ==
[~2017-05-29] VITALS: Ht 170.2 cm; Wt 86.6 kg
[~2017-05-29 20:32] MED LIST changes: +DELSYM30 MG/5 M1 PO; +FLONASE 0.05%50 MCG NASAL
[2017-05-29] MEDS ORDERED: AMOXIL 875 MG875 M2 PO (20:59)
[2017-05-29] MEDS ORDERED: FLONASE 0.05%50 MCG NASAL (20:59)
[2017-05-29 21:26] VITALS: BP 170/50
== END 2017-05-29 21:29 | disposition home or self-care (01) ==
LOC: M.ERS 20:32
DX: J32.9 Chronic sinusitis, unspecified (principal); E78.00 Pure hypercholesterolemia, unspecified; E03.9 Hypothyroidism, unspecified; E11.9 Type 2 diabetes mellitus without complications; I11.0 Hypertensive heart disease with heart failure; I50.9 Heart failure, unspecified; Z95.5 Presence of coronary angioplasty implant and graft; Z90.49 Acquired absence of other specified parts of digestive tract; Z88.1 Allergy status to other antibiotic agents; Z88.8 Allergy status to other drugs, medicaments and biological substances

== ENCOUNTER 2017-08-11 16:55 | Inpatient (IN) | payer MEDICARE, BC ==
[~2017-08-11] VITALS: Ht 170.2 cm; Wt 85.7 kg
[~2017-08-11 16:55] MED LIST changes: +AMOXIL 875 MG875 M2 PO
[2017-08-11 16:59] VITALS: BP 127/84
[2017-08-11 17:15] LABS: ABSOLUTE EOSINOPHILS 0.1 thou/uL (0.0-0.7); ABSOLUTE LYMPHOCYTES 1.5 thou/uL (0.8-5.3); ABSOLUTE MONOCYTES 0.7 thou/uL (0.0-1.2); ABSOLUTE NEUTROPHILS 5.3 thou/uL (1.6-8.1); BASOPHILS 0.6 %; HEMATOCRIT 39.5 % (37.0-47.0); HEMOGLOBIN 13.5 gm/dL (12.0-15.0); LYMPHOCYTES 19.2 %; MCH 30.3 pg (26.0-34.0); MCHC 34.1 g/dL (28.0-37.0); MONOCYTES 8.6 %; MPV 7.6 fl. (7.2-11.1); NUCLEATED RBCS 0 /100WBC; PLATELET COUNT* 233 thou/uL (150-400); POLYS 69.6 %; RBC 4.44 mil/uL (4.20-5.00); RDW-CV 13.9 % (10.5-14.5); WBC 7.6 thou/uL (4.0-11.0)
[2017-08-11 17:26] LABS: CALCIUM 8.7 mg/dL (8.5-10.1); CREATININE 0.7 mg/dL (0.6-1.3); POTASSIUM 4.3 mmol/L (3.5-5.1)
[2017-08-11 17:42] LABS: ALBUMIN 3.2 g/dL (3.4-5.0); CK-MB MASS 1.8 ng/mL (<0.5-3.6); MAGNESIUM 2.1 mg/dL (1.8-2.4); TOTAL BILIRUBIN 0.3 mg/dL (<0.1-1.0); TROPONIN-I LEVEL 0.17 ng/mL (<0.06)
[2017-08-11 17:49] LABS: APTT 24.7 Seconds (25.0-31.3); PROTIME 9.7 Seconds (9.20-11.50)
--- NOTE | 2017-08-11 19:07 | NUR ---
DINNER TRAY GIVEN
[2017-08-11 20:25] VITALS: BP 120/53
[2017-08-11 20:38] VITALS: BP 120/53
[2017-08-11 23:00] VITALS: BP 101/33
--- NOTE | 2017-08-11 23:01 | NUR ---
ASSUMED CARE OF PT AT 2015 FROM THE ER. PT IS ALERT AND ORIENTED. NO COMPLAINTS OF SOA OR CHEST PAIN AT THAT TIME. PT WAS IN SINUS TACHYCARDIA CARDIZEM STARTED AT 5ML/ HR AT ADMISSION. PTS HEART RATE IS NOW IN THE 50"S. CARDIZEM TURNED OFF. PT IS SLEEPING QUIETLY IN BED. RESPIRATIONS ARE EVEN AND NONLABORED. WILL CONTINUE TO MONITOR PT.
[2017-08-12 02:07] LABS: GLYCOHEMOGLOBIN (HGB A1C) 8.4 % (4.8-5.6)
[2017-08-12 03:00] VITALS: BP 129/46
[2017-08-12 04:28] LABS: HEMATOCRIT 38.6 % (37.0-47.0); HEMOGLOBIN 12.9 gm/dL (12.0-15.0); MCH 30.2 pg (26.0-34.0); MCHC 33.5 g/dL (28.0-37.0); MCV 90.3 fL (80.0-100.0); MPV 8.1 fl. (7.2-11.1); RBC 4.28 mil/uL (4.20-5.00); RDW-CV 13.6 % (10.5-14.5); WBC 6.4 thou/uL (4.0-11.0)
[2017-08-12 04:52] LABS: ALBUMIN 3.1 g/dL (3.4-5.0); CALCIUM 8.9 mg/dL (8.5-10.1); CREATININE 0.9 mg/dL (0.6-1.3); MAGNESIUM 2.3 mg/dL (1.8-2.4); TOTAL BILIRUBIN 0.3 mg/dL (<0.1-1.0); TOTAL PROTEIN 6.3 g/dL (6.4-8.2)
[2017-08-12 08:00] VITALS: BP 141/48
--- NOTE | 2017-08-12 09:23 | NUR ---
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
--- NOTE | 2017-08-12 10:37 | EKG ---
[place] [address] ELECTROCARDIOGRAM REPORT Name: JEREMIAH CERDA Room: [address] IN .R.#: [id number] Admission: 08/11/17 Attend Phys: Sharon Buckley MD Discharge: Date of : 33 Report #: [id number] THIS REPORT FOR: //name// [facility] ED Test Date: 2017-08-11 Test Time: 17:03:00 Pat Name: JEREMIAHMARIAN CERDA Department: Room: Gender: F Breakfast Attendant: : 1935 Requested By: Higinio Bailey Order Number: [id number] MD: Seth Jay Measurements Intervals [place] Rate: 124 P: TN: QRS: -47 QRSD: 128 T: 5 QT: 355 QTc: 510 Interpretive Statements PSVT RBBB and LAFB ST depr, consider ischemia, anterolateral lds Compared to ECG 05/12/2017 18:18:49 Junctional tachycardia now present Left anterior fascicular block now present Possible ischemia now present Sinus rhythm no longer present Electronically Signed On 08-12-2017 10:37:11 CDT by Seth Jay [email or web address] <ELECTRONICALLY SIGNED> By: Seth Jay MD, FACC 08/12/17 1037 02 02 Seth Jay MD, FACC /EPI
[2017-08-12 11:35] VITALS: BP 162/50
--- NOTE | 2017-08-12 13:14 | 2DMMODE ---
[place] [address] 2 D/M-MODE ECHOCARDIOGRAM Name: JEREMIAH CERDA Room: [address] IN [facility]#: [id number] Admission: 08/11/17 Attend Phys: Sharon Buckley, Discharge: Date of : 33 Date of Service: 08/12/17 1314 Report #: [id number] THIS REPORT FOR: //name// APPROVED REPORT Study performed: 08/12/2017 09:47:56 EXAM: Comprehensive 2D, Doppler, and color-flow Echocardiogram Patient Location: In-Patient Room #: [facility] Status: routine BSA: 1.98 HR: 53 bpm BP: 129/46 mmHg Rhythm: NSR Other Information Study Quality: Good Indications SVT 2D Dimensions LVEF(%): 67.76 (>50%) IVSd: 12.10 (7-11mm) LVOT Diam: 20.42 (18-24mm) LVDd: 46.57 mm PWd: 10.69 (7-11mm) Ascending Ao: 31.46 (22-36mm) LVDs: 29.03 (25-40mm) Aortic Root: 30.84 mm Grove's LVEF: 67.76 % Volumes Left Atrial Volume (Systole) LA ESV Index: 36.50 mL/m2 Aortic Valve AoV Peak Diaz.: 1.73 m/s AO Peak Gr.: 11.94 mmHg LVOT Max P.51 mmHg AO Mean Gr.: 7.15 mmHg LVOT Mean P.82 mmHg LVOT Max V: 0.61 m/s AO V2 VTI: 46.33 cm LVOT Mean V: 0.43 m/s BARBIE (VTI): 1.25 cm2 LVOT V1 VTI: 17.68 cm AI Vinton: 2.57 m/s2 AI PHT: 434.74 [place] [address] 2 D/M-MODE ECHOCARDIOGRAM Name: JEREMIAH CERDA Room: [address] IN [facility].#: [id number] Admission: 08/11/17 Attend Phys: Sharon Buckley, Discharge: Date of : 33 Date of Service: 08/12/17 1314 Report #: [id number] Mitral Valve E/A Ratio: 2.83 MV Decel. Time: 157.47 ms MV E Max Diaz.: 0.97 m/s MV PHT: 45.67 ms MVA (PHT): 4.82 cm2 TDI E/Lateral E': 13.86 E/Medial E': 19.40 Medial E' Diaz.: 0.05 m/s Lateral E' Diaz.: 0.07 m/s Pulmonary Valve PV Peak Diaz.: 0.80 m/s PV Peak Gr.: 2.56 mmHg Tricuspid Valve TR Peak Gr.: 35.93 mmHg RVSP: 40.00 mmHg Left Ventricle The left ventricle is normal size. There is normal LV segmental wall motion. Mild concentric left ventricular hypertrophy. Left ventricular systolic function is normal. The left ventricular ejection fraction is within the normal range. LVEF is 55-60%. 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 Right Ventricle The right ventricle is normal size. The right ventricular systolic function is normal. Atria Left atrium is mildly dilated. The right atrium size is normal. Aortic Valve Mild aortic valve sclerosis. Moderate aortic regurgitation. no aortic stenosis. Mitral Valve The mitral valve is mildly calcified and thickened, notably the posterior leaflet Mild mitral regurgitation. No evidence of mitral valve stenosis. Tricuspid Valve The tricuspid valve is normal in structure. Mild tricuspid regurgitation. The RVSP is 40-[place] [address] 2 D/M-MODE ECHOCARDIOGRAM Name: JEREMIAH CERDA Room: [address] IN [facility]#: [id number] Admission: 08/11/17 Attend Phys: Sharon Buckley, Discharge: Date of : 33 Date of Service: 08/12/17 1314 Report #: [id number] Pulmonic Valve The pulmonary valve is normal in structure. Trace pulmonic regurgitation. Great Vessels The aortic root is normal in size. IVC is normal in size and collapses with >50% inspiration Pericardium There is no pericardial effusion. <Conclusion> The left ventricle is normal size. Mild concentric left ventricular hypertrophy. There is normal LV segmental wall motion. LVEF is 55-60%. 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 Left atrium is mildly dilated. Mild aortic valve sclerosis. Moderate aortic regurgitation. no aortic stenosis. Mild mitral regurgitation. Mild tricuspid regurgitation. The RVSP is 40-45 mmHg. <ELECTRONICALLY SIGNED> By: Seth Jay MD, FACC 08/12/17 1314 13 13 Seth Jay MD, FACC /INF
[2017-08-12 15:57] VITALS: BP 148/56
--- NOTE | 2017-08-12 16:48 | NUR ---
MET WITH PT TO DISCUSS HOME SITUATION/DC PLANNING. PT LIVES ALONE. HAS PRIVATE CAREGIVER WHO COMES EVERYDAY TO CHECK ON HER. PT STATES SHE WRITES DOWN EVERYTHING ON A CALENDAR INCLUDING HER MEDS SO THAT IF SOMEONE COMES OVER, THEY CAN CHECK IT AND KNOW WHAT IS HAPPENING. PT REPEATED THAT STORY 3 TIMES DURING OUR SHORT CONVERSATION. PT USES NO EQUIPMENT. SHE HASN'T HAD HH AND NOT SURE SHE WOULD WANT IT. STATES HER DTR/SHRADDHA CHECKS ON HER ALSO. CALL PLACED TO SHRADDHA BUT HAD TO LEAVE MESSAGE. PT PLANS TO RETURN HOME AT [place]. WILL FOLLOW
--- NOTE | 2017-08-12 18:01 | NUR ---
PT REFUSED ANY TESTS TODAY QUESTIONED ALL MEDICATIONS, ETC. PLAN TO MONITOR HEART RHYTHM TONIGHT THEN DISCHARGE DAUGHTER IS AWARE DENIES ANY PAIN NO CONCERNS AT THIS TIME UP AD JONO WALKING AROUND
[2017-08-12 19:25] VITALS: BP 177/62
[2017-08-13] VITALS: BP 175/42
--- NOTE | 2017-08-13 00:58 | NUR ---
ASSUMED CARE OF PT AT 1900. PT IS ALERT AND ORIENTED. VSS. PERRLA. PT DENIES ANY CHEST PAIN. STEADY GAIT. PT IS IN SINUS RYTHM ON THE TELEMETRY. PT IS RESTING COMFORTABLY IN BED. RESPIRATIONS ARE EVEN AND NONLABORED. WILL CONTINUE TO MONITOR PT.
[2017-08-13 04:00] VITALS: BP 163/59; BP 183/58
[2017-08-13 07:36] VITALS: BP 183/58
[2017-08-13 08:00] VITALS: BP 187/59
--- NOTE | 2017-08-13 09:12 | NUR ---
PT TO DISCHARGE TODAY FORGETFUL CONFUSED UP AD JONO NO CONCERNS PT IS STILL ASHLEIGH BP WAS ELEVATED CALL LIGHT IN REACH
--- NOTE | 2017-08-13 09:18 | NUR ---
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 SHE REPORTS THAT SHE IS AWARE OF PT'S FORGETFULNESS AND THAT PT WILL ONLY DO CERTAIN THINGS. STATES THEY HAVE SITTERS BUT NOT 24HRS FOR PT. STATES PT TAKES HER OWN MEDS AND WILL ONLY TAKE HER LONG ACTING INSULIN AND NOT CHECK HER FSBG. ALSO THAT SHE TAKES ONLY ONE PILL A DAY OF HER CARDIAC MEDS AND WILL TAKE HER THYROID MED. STATES PT HAS APPT WITH NEUROLOGIST SOON TO EVAL HER 'DEMENTIA.' DTR STATED SHE HAD BEEN RELUCATANT TO DEEM HER MOTHER 'INCOMPETENT' AND WAS TRYING TO GIVE HER ANOTHER 'CHANGE' AT HOME. SHE ACKNOWLEDGED THAT SHE PROBABLY NEEDS A DIFFERENT LIVING SITUATION AND HAS BEEN LOOKING INTO [facility] AND DC. OFFERED ASSIST AND SHE DECLINED STATED SHE HAD IT HANDLED. DID SHARE THAT DR FLETCHER VOICED CONCERN THAT PT SHOULDN'T BE LEFT ALONE, THAT THERE WAS CONCERN WITH NONCOMPLIANCE OF HER MEDS, SPECIFICALLY HER CARDIAC MEDS AND THAT SHE WAS ADMITTED WITH PSVT AND HIGH GLUCOSE. DTR STATED SHE UNDERSTOOD. OFFERED HH, SHE STATED HER MOTHER WOULDN'T LET ANYONE COME IN THE HOUSE. SHE PLANS TO TAKE HER MOTHER HOME. ALSO STATED THAT THIS WAS THE '1ST TIME IN 3 YEARS A CM HAD CONTACTED HER.' DID REVIEW OLD CM NOTES AND CM HAS TALKED WITH DTR IN THE LAST 2 YRS PER NOTES. DTR PLANS TO TAKE PT HOME AT [place] AND WILL ARRANGE FOR SOMEONE TO PICK HER UP. SHRADDHA CAN BE REACHED BY CELL AT [phone]
[2017-08-13 12:00] VITALS: BP 152/48
[2017-08-13] MEDS ORDERED: CARDIZEM CD120 MG PO (12:05)
[2017-08-13 13:25] VITALS: BP 183/58
--- NOTE | 2017-08-13 14:37 | NUR ---
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
--- NOTE | 2017-08-17 11:49 | CON ---
[address] [address] CONSULTATION Name: JEREMIAH CERDA Room: [address] M.R.#: [id number] Admission: 08/11/17 Attend Phys: Sharon Buckley MD Discharge: 08/13/17 Date of : 33 Report #: [id number] THIS REPORT FOR: //name// CC: Simeon Buckley DATE OF SERVICE: 08/11/2017 REQUESTING PHYSICIAN: Dr. Buckley. PRIMARY DOCTOR: Dr. Orr. PRIMARY QUALITY ASSURANCE COACH: Dr. Armond Jeong. CHIEF COMPLAINT: Chest pain and palpitations. HISTORY OF PRESENT ILLNESS: The patient is an 82-year-old female who presented with tachycardia sensations, sudden onset yesterday. She came to the Emergency Room via ambulance, was noted to be in a narrow complex regular tachycardia, heart rates in the 140s. She has a known documented history of PSVT. Because her cardiac troponin level was mildly abnormal in the 0.15 range, she was admitted for observation. She denies significant chest pressure or tightness, but she has numerous cardiovascular continued risk factors and a known history of prior remote coronary PCI to her left anterior descending coronary and diagonal. She is admittedly poor with follow up. She was not seen in our office since 2016. Apparently most of the time she comes in with PSVT exacerbations, gets treated in the Emergency Room and discharged to home. She does admit to compliance with her medications, but admits she cannot remember how regularly she has been taking them. She is currently supposed to be on sotalol. She denies neuro symptoms, slurred speech, numbness or weakness, but has been forgetful. She does live alone. PAST MEDICAL HISTORY: She is type 2 diabetic requiring insulin. She has a history of preserved LV function, but her last evaluation was in 2014 with an echocardiogram and at that time her EF was 55%. She has a remote history of PCI to her left anterior descending coronary artery, a 2.25 x 15 mm and 2.5 x 15 mm Xience drug-eluting stents to her LAD and diagonal in 2011. She has a very remote history of RCA stenting. Her last known nuclear stress test apparently was in 2014. She has hyperlipidemia [place] [address] CONSULTATION Name: ZAIDARUBYJEREMIAHMARIAN KAHN Room: [address]#: [id number] Admission: 08/11/17 Attend Phys: Sharon Buckley MD Discharge: 08/13/17 Date of : 33 Report #: [id number] HOME MEDICATIONS: Include the following: Sotalol 160 mg p.o. b.i.d., aspirin, insulin glargine, and Synthroid 0.075 mg daily, but she has not been on a statin or other blood pressure drugs. SOCIAL HISTORY: She is retired. She lives alone. FAMILY HISTORY: Noncontributory. PAST SURGICAL HISTORY: She has had prior hysterectomy, tonsillectomy and stents in 2010 and 2011. REVIEW OF SYSTEMS: CENTRAL NERVOUS SYSTEM: No seizures or paralysis, headaches or blurry vision. GENERAL: No weight loss or fevers. PULMONARY: No cough, ____. NEUROLOGIC: Denies headaches or blurry vision. No seizures. PSYCHIATRIC: No depression or anxiety. Positive forgetfulness. SKIN: No rashes. EYES: She does not use glasses. EARS, NOSE, THROAT AND MOUTH: No bleeding from nose. GASTROINTESTINAL: No hematemesis or melena. ALLERGIES: SHE HAS ALLERGIES TO MENTHOL, SULFA, ANTIHISTAMINES AND NUMEROUS DOCUMENTED IN THE CHART. PHYSICAL EXAMINATION: VITAL SIGNS: Blood pressure is 129/46, pulse 51 and temperature is 36.4. GENERAL: This is a pleasant elderly female. She is pleasant, in no apparent distress, but somewhat of a poor historian. HEENT: There is no evidence of trauma. Eyes: EOMs intact. No facial asymmetry. NECK: Supple. No jugular venous distention. CARDIOVASCULAR: Regular. I cannot hear a murmur or S3. LUNGS: Clear to auscultation bilaterally. ABDOMEN: Soft and nontender. EXTREMITIES: There is no peripheral edema. NEUROLOGIC: There are no focal deficits. LABORATORY DATA: Electrocardiogram shows a sinus rhythm with complete right bundle branch block, occasionally she was bradycardic in the 50s. Her ____ show a sodium 140, potassium 4.0, chloride 104, CO2 is 28, BUN is 22, creatinine is 0.9 and glucose is 100. Troponin I is 0.13, 0.17 and 0.17. No acute abnormalities on chest x-ray. QTC on her ECG is 510. [address] [address] CONSULTATION Name: JEREMIAH CERDA Room: [address] IN ..#: [id number] Admission: 08/11/17 Attend Phys: Sharon Buckley MD Discharge: 08/13/17 Date of : 33 Report #: [id number] IMPRESSION: 1. PSVT. This seems likely atrial tachycardia versus reentrant tachycardia. I am not sure of the compliance with the sotalol, but I think I would like to reduce her dose to 80 b.i.d. and add Cardizem. 2. Borderline QT prolongation. This should improve. 3. Abnormal troponin level. Given her history of coronary artery disease and compliance issues, I have arranged for further evaluation with a pharmacologic nuclear stress test and echocardiogram. We will continue with aspirin therapy and she is on a beta dez. 4. Diabetes mellitus per our hospital colleagues. 5. History of hypertension. Her blood pressure is stable. 6. Sinus bradycardia as noted above. We will decrease her sotalol dose. I am not sure how much Cardizem she will be able to tolerate, but it is less potent than her sotalol. <ELECTRONICALLY SIGNED> By: Seth Jay MD, FACC 08/17/17 1149 0907 1120Seth Jay MD, FACC /nt
== END 2017-08-13 13:48 | disposition home or self-care (01) | DRG 309 ==
LOC: M.ERS 16:55 → M.TBA-ER 17:36 → M.2W 17:36
PROVIDERS: Family Medicine; ADMIT Internal Medicine
DX: I47.1 Supraventricular tachycardia (principal); I50.32 Chronic diastolic (congestive) heart failure; E44.1 Mild protein-calorie malnutrition; E03.9 Hypothyroidism, unspecified; I25.10 Atherosclerotic heart disease of native coronary artery without angina pectoris; I50.9 Heart failure, unspecified; R41.3 Other amnesia; I11.0 Hypertensive heart disease with heart failure; I45.81 Long QT syndrome; E78.00 Pure hypercholesterolemia, unspecified; E11.9 Type 2 diabetes mellitus without complications; R07.89 Other chest pain; Z88.2 Allergy status to sulfonamides; Z91.14 Patient's other noncompliance with medication regimen; Z88.8 Allergy status to other drugs, medicaments and biological substances; Z95.5 Presence of coronary angioplasty implant and graft; Z90.710 Acquired absence of both cervix and uterus; Z98.890 Other specified postprocedural states; Z83.3 Family history of diabetes mellitus; Z82.49 Family history of ischemic heart disease and other diseases of the circulatory system; Z79.82 Long term (current) use of aspirin; Z79.4 Long term (current) use of insulin; Z79.899 Other long term (current) drug therapy

== ENCOUNTER 2017-09-01 06:28 | Observation (INO) | payer MEDICARE, BC ==
[~2017-09-01] VITALS: Ht 170.2 cm; Wt 87.8 kg
[~2017-09-01 06:28] MED LIST changes: +CARDIZEM CD120 MG PO
[2017-09-01 06:31] VITALS: BP 130/73
[2017-09-01] MEDS ORDERED: SORINE 80 MG TA80 M1 PO (06:54)
[2017-09-01] MEDS ORDERED: ASPIR 8181 MG PO (06:54)
[2017-09-01 07:03] LABS: ABSOLUTE EOSINOPHILS 0.1 thou/uL (0.0-0.7); ABSOLUTE LYMPHOCYTES 1.6 thou/uL (0.8-5.3); ABSOLUTE MONOCYTES 0.4 thou/uL (0.0-1.2); ABSOLUTE NEUTROPHILS 3.4 thou/uL (1.6-8.1); BASOPHILS 0.7 %; EOSINOPHILS 2.6 %; HEMATOCRIT 39.3 % (37.0-47.0); HEMOGLOBIN 13.2 gm/dL (12.0-15.0); MCH 30.1 pg (26.0-34.0); MCHC 33.6 g/dL (28.0-37.0); MCV 89.6 fL (80.0-100.0); MONOCYTES 7.8 %; MPV 7.4 fl. (7.2-11.1); NUCLEATED RBCS 0 /100WBC; PLATELET COUNT* 229 thou/uL (150-400); POLYS 59.9 %; RBC 4.39 mil/uL (4.20-5.00); RDW-CV 13.5 % (10.5-14.5); WBC 5.6 thou/uL (4.0-11.0)
[2017-09-01 07:22] LABS: CALCIUM 8.9 mg/dL (8.5-10.1); CREATININE 0.9 mg/dL (0.6-1.3)
[2017-09-01 07:34] LABS: ALBUMIN 3.3 g/dL (3.4-5.0); TOTAL BILIRUBIN 0.2 mg/dL (<0.1-1.0); TROPONIN-I LEVEL 0.17 ng/mL (<0.06)
[2017-09-01 09:13] VITALS: BP 145/55
[2017-09-01 09:25] VITALS: BP 181/65
--- NOTE | 2017-09-01 09:25 | NUR ---
RECIEVED REPORT. ASSUMED CARE OF PT AT 0730. VSS. CARDIAC MONITORING IN PLACE SB. ADMISSION HISTORY AND ASSESSMENT COMPLETED CHARTED. PT ALERT AND ORIETNED BUT FORGETFUL. PT ON 2L PER NC WITH O2 SAT AT 98% PT DENIES FEELING SOA. PT DENIES ANY CP OR ANY OTHER PAIN. PT IS UP AD JONO. PT LIVES AT HOME INDEPENDETNLY. PT ORIENTED TO ROOM AND CALL LIGHT. FALL AGREEMENT FORM SIGNED. PT INFORMED OF PLAN OF CARE. CALL LIGHT IS WITHIN REACH. WILL CONTINUE TO MONITOR FOR DURATION OF SHIFT.
[2017-09-01 12:35] VITALS: BP 180/115
[2017-09-01 15:28] VITALS: BP 167/51
--- NOTE | 2017-09-01 18:37 | NUR ---
VSS. CARDIAC MONITOIRNG IN PLACE SB THIS SHIFT. PT REMIANS ALERT AND ORIENTED BUT VERY FORGETFUL. PT DENEIS ANY COMPLAINTS OF PAIN OR DISCOMFORT THIS SHIFT. PT IS UP AD JONO IN ROOM. PT PROGRESSING TOWARDS GOALS. PT INFORMED OF PLAN OF CARE. CALL LIGHT IS WITHIN REACH. HOURLY ROUNDING. WILL CONTINUE TO MONITOR.
[2017-09-01 20:00] VITALS: BP 177/52
[2017-09-02 00:09] VITALS: BP 160/49
--- NOTE | 2017-09-02 03:07 | NUR ---
PT ALERT ORIENTED. UP AD JONO. DENIES PAIN OR DISCOMFORT. ALERT, ORIENTED, FORGETFUL. PT TALKATIVE. TELEM SHOWS SR BBB. PT COOPERATIVE AND PLEASANT. WILL CONTINUE TO MONITOR.
[2017-09-02 04:40] VITALS: BP 156/49
[2017-09-02 08:00] VITALS: BP 148/55
--- NOTE | 2017-09-02 08:00 | NUR ---
RECEIVED REPORT. ASSUMED CARE OF PT AT 0730. VSS. CARDIAC MONTIORING IN PLACE SB WITH BBB. AM ASSESSMENT AND VITALS COMPLETED CHARTED. PT ALERT AND ORIETNED BUT FORGETFUL. PT ON RA. IV SALINE LOCKED. PT DENIES ANY COMPLAINTS OF PAIN OR DISCOMFORT. PT IS UP INDEPENDENTLY IN ROOM. PT INFORMED OF PLAN OF CARE. CALL LIGHT IS WITHIN REACH. WILL CONTINUE TO MONITOR FOR DURATION OF SHFIT.
--- NOTE | 2017-09-02 10:02 | NUR ---
CM spoke with Pt's dtr at length, dtr relayed a similar story that she discussed with CM during a hospital stay in April. Pt continues to live at home alone, Pt has paid sitters that come stay with her from around noon everyday to 11pm. Pt has a hx of being noncompliant with her medications, Pt has stopped bathing, and will only take a "wash off" in the sink. Pt will only eat if someone takes her to [employer]. Hx of being hotlined to [facility]. Pt's car has a boot on it so that she cannot drive. Pt saw neurology last month and was diagnosed with dementia, Pt refuses to believe that she carries that dx. Hx of skilled at [facility]. Dtr continues to look for [facility], but states that Pt refuses to go. Dtr states that until 2 doctors deem her incompentent, that her hands are tied. Updated Dr Buckley and nurse. Plan dc to home today with Lei AREAVLO CM to update Pt. Cm will fax dc orders, H&P and facesheet once available. Dtr's will provide dc transportation. incompetent, dtr feels like her hands are tied. Dtr states that she has "caregiver fatigue" and she does not know what to do. Dtr has asked Pt to come and live in her home and Pt refuses. Pt calls the ambulance, instead of calling her dtr, who is an RN, when something is wrong.
[2017-09-02 10:04] VITALS: BP 148/55
[2017-09-02 10:24] VITALS: BP 148/55
[2017-09-02] MEDS ORDERED: LISINOPRIL10 MG PO (10:26)
[2017-09-02] MEDS ORDERED: CARDIZEM CD120 MG PO (10:47)
--- NOTE | 2017-09-02 13:00 | NUR ---
DISCHARGE ORDERS RECIEVED AND PREPARED. IV AND CARDIAC MONITORING DISCONTINUED. PT EDUCATED ON DISCHARGE INSTRCTUIONS. ALL QUESTIONS AND CONCERNS ANSWERED AT THIS TIME. PT GIVEN COPY OF DISCHARGE PAPERWORK AND NEW SCRIPTS. PT'S PERSONAL BELONGINGS GATHERED AND SENT HOME WITH PT. PT ESCORTED OFF UNIT WITH NURSING STAFF. PT LEFT IN PRIVATE VEHCILE.
--- NOTE | 2017-09-02 13:36 | EKG ---
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 : 1935 Requested By: Marlon Finley Order Number: [id number] MD: Seth Jay Measurements Intervals [place] Rate: 71 P: 61 [place]: 196 QRS: 21 QRSD: 135 T: 14 QT: 420 QTc: 457 Interpretive Statements Sinus rhythm Right bundle branch block Compared to ECG 08/11/2017 17:03:00 Supraventricular tachycardia no longer present Left anterior fascicular block no longer present Possible ischemia no longer present Electronically Signed On 09-02-2017 13:36:32 CDT by Seth Jay [email or web address] <ELECTRONICALLY SIGNED> By: Seth Jay MD, [facility] 09/02/17 1336 0650 0650 Seth Jay MD, [facility] /EPI
--- NOTE | 2017-09-02 13:36 | EKG ---
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 : 1935 Requested By: Marlon Finley Order Number: [id number] MD: Seth Jay Measurements Intervals [place] Rate: 122 P: CT: QRS: -39 QRSD: 125 T: 4 QT: 353 QTc: 503 Interpretive Statements Junctional tachycardia Right bundle branch block Compared to ECG 08/11/2017 17:03:00 Junctional tachycardia now present Supraventricular tachycardia no longer present Left anterior fascicular block no longer present Possible ischemia no longer present Electronically Signed On 09-02-2017 13:36:28 CDT by Seth Jay [email or web address] <ELECTRONICALLY SIGNED> By: Seth Jay MD, FAC 09/02/17 1336 0640 0640 Seth Jay MD, FAC /EPI
== END 2017-09-02 13:02 | disposition home or self-care (01) ==
LOC: M.ERS 06:28 → M.2W 08:28 → M.TBA-ER 08:28 → M.2W 09:33
PROVIDERS: Emergency Medicine; ADMIT Internal Medicine
DX: I47.1 Supraventricular tachycardia (principal); I48.91 Unspecified atrial fibrillation; I25.10 Atherosclerotic heart disease of native coronary artery without angina pectoris; E11.8 Type 2 diabetes mellitus with unspecified complications; R79.89 Other specified abnormal findings of blood chemistry; F03.90 Unspecified dementia, unspecified severity, without behavioral disturbance, psychotic disturbance, mood disturbance, and anxiety; E03.9 Hypothyroidism, unspecified; E78.5 Hyperlipidemia, unspecified; I21.4 Non-ST elevation (NSTEMI) myocardial infarction; E78.00 Pure hypercholesterolemia, unspecified; I11.0 Hypertensive heart disease with heart failure; I50.9 Heart failure, unspecified; Z90.49 Acquired absence of other specified parts of digestive tract; Z91.14 Patient's other noncompliance with medication regimen; Z90.710 Acquired absence of both cervix and uterus; Z95.5 Presence of coronary angioplasty implant and graft; Z79.4 Long term (current) use of insulin

== ENCOUNTER 2017-11-04 21:26 | Emergency (ER) | payer MEDICARE, BC ==
[~2017-11-04] VITALS: Ht 170.2 cm; Wt 86.2 kg
[~2017-11-04 21:26] MED LIST changes: +LISINOPRIL10 MG PO
[2017-11-04 22:03] LABS: ABSOLUTE EOSINOPHILS 0.1 thou/uL (0.0-0.7); ABSOLUTE LYMPHOCYTES 1.3 thou/uL (0.8-5.3); ABSOLUTE MONOCYTES 0.4 thou/uL (0.0-1.2); ABSOLUTE NEUTROPHILS 3.7 thou/uL (1.6-8.1); BASOPHILS 0.4 %; EOSINOPHILS 1.5 %; HEMATOCRIT 40.5 % (37.0-47.0); HEMOGLOBIN 13.4 gm/dL (12.0-15.0); LYMPHOCYTES 23.5 %; MCH 29.8 pg (26.0-34.0); MCHC 33.2 g/dL (28.0-37.0); MCV 89.7 fL (80.0-100.0); MPV 7.4 fl. (7.2-11.1); NUCLEATED RBCS 0 /100WBC; PLATELET COUNT* 264 thou/uL (150-400); POLYS 67.6 %; RBC 4.52 mil/uL (4.20-5.00); RDW-CV 13.9 % (10.5-14.5); WBC 5.4 thou/uL (4.0-11.0)
[2017-11-04 22:08] LABS: CALCIUM 8.6 mg/dL (8.5-10.1)
[2017-11-04 22:19] LABS: ALBUMIN 3.4 g/dL (3.4-5.0); TOTAL BILIRUBIN 0.3 mg/dL (<0.1-1.0); TOTAL PROTEIN 7.2 g/dL (6.4-8.2); TROPONIN-I LEVEL 0.15 ng/mL (<0.06)
[2017-11-04 23:30] VITALS: BP 129/59
--- NOTE | 2017-11-05 10:07 | EKG ---
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 : 1935 Requested By: Marlon Finley Order Number: [id number] MD: Armond Jeong Measurements Intervals [place] Rate: 134 P: [place]: QRS: -177 QRSD: 119 T: 19 QT: 350 QTc: 523 Interpretive Statements Junctional tachycardia RBBB and LPFB ST depression, probably rate related Compared to ECG 09/01/2017 06:50:20 Junctional tachycardia now present Sinus rhythm no longer present Electronically Signed On 11-05-2017 10:07:13 CDT by Armond Jeong [email or web address] <ELECTRONICALLY SIGNED> By: Armond Jeong MD, [facility] 11/05/17 1007 29 Armond Jeong MD, [facility] /EPI
--- NOTE | 2017-11-05 10:08 | EKG ---
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
== END 2017-11-04 23:30 | disposition home or self-care (01) ==
LOC: M.ERS 21:26
PROVIDERS: Emergency Medicine
DX: I47.1 Supraventricular tachycardia (principal); E78.00 Pure hypercholesterolemia, unspecified; E03.9 Hypothyroidism, unspecified; E11.9 Type 2 diabetes mellitus without complications; I11.0 Hypertensive heart disease with heart failure; I50.9 Heart failure, unspecified; Z95.5 Presence of coronary angioplasty implant and graft; Z79.4 Long term (current) use of insulin; Z88.2 Allergy status to sulfonamides; Z88.8 Allergy status to other drugs, medicaments and biological substances